=== PATIENT | female | born 1950 | race Caucasian/White ===

== ENCOUNTER → 2019-12-29 15:37 | Outpatient (CLI) | payer MEDICARE, OTHER, SELFPAY ==
[2019-12-30 11:09] LABS: Fecal Immunochemical Test Negative (Negative)
== END ==
PROVIDERS: PCP Student in an Organized Health Care Education/Training Program; Referring Provider Student in an Organized Health Care Education/Training Program; Visit Provider Student in an Organized Health Care Education/Training Program
DX: Z12.11 Encounter for screening for malignant neoplasm of colon (principal)
CPT/HCPCS: 82274

== ENCOUNTER → 2020-01-20 10:48 | Outpatient (CLI) | payer MEDICARE, OTHER, SELFPAY ==
[2020-01-20 11:57] LABS: Blood Urea Nitrogen 12 mg/dL (7-17); Calcium 10.2 mg/dL (8.4-10.2); Carbon Dioxide 28 mmol/L (22-32); Chloride 96 mmol/L (98-107); Estimated Glomerular Filt Rate > 60.0 mL/min (>60); Glucose 171 mg/dL (80-110); HEMOLYSIS < 15 (0-50); Potassium 4.2 mmol/L (3.4-5.1); Sodium 132 mmol/L (137-145)
== END ==
PROVIDERS: PCP Student in an Organized Health Care Education/Training Program; Referring Provider Student in an Organized Health Care Education/Training Program; Visit Provider Student in an Organized Health Care Education/Training Program
DX: I10 Essential (primary) hypertension (principal); R26.89 Other abnormalities of gait and mobility
CPT/HCPCS: 36415; 80048

== ENCOUNTER → 2020-02-04 10:36 | Outpatient (CLI) | payer MEDICARE, OTHER, SELFPAY ==
--- NOTE | 2020-02-04 | DI.RAD.S_ITS ---
PROCEDURE: XR CHEST 2V INDICATIONS: Presence of aortocoronary bypass graft TECHNIQUE: 2 views of the chest were acquired. COMPARISON: None. FINDINGS: Surgical changes and devices: Patient is status post median sternotomy and CABG. Lungs and pleura: Probable pulmonary scarring is present within the right mid lung and the left lower lung. However, no prior studies are available for comparison. No pleural effusion. No pneumothorax appreciated. Mediastinum: Mediastinal contours are normal. Heart size is normal. Bones and chest wall: No suspicious bony abnormalities. Soft tissues appear unremarkable. IMPRESSION: Questionable bilateral pulmonary scarring. No prior studies are available. If further characterization of pulmonary radiopacities is warranted, CT of the chest could be used. Dictated by: Verna Lombardo M.D. on 02/04/2020 at 12:04 Approved by: Verna Lombardo M.D. on 02/04/2020 at 12:06
== END ==
PROVIDERS: PCP Student in an Organized Health Care Education/Training Program; Referring Provider Student in an Organized Health Care Education/Training Program; Visit Provider Chiropractor
DX: Z09 Encounter for follow-up examination after completed treatment for conditions other than malignant neoplasm (principal); Z95.1 Presence of aortocoronary bypass graft
CPT/HCPCS: 71046

== ENCOUNTER → 2020-02-09 14:31 | Outpatient (CLI) | payer MEDICARE, OTHER, SELFPAY ==
[2020-02-09 15:23] LABS: Hemoglobin A1C% w Est Avg Glu 7.3 % (4.0-6.0)
== END ==
PROVIDERS: PCP Student in an Organized Health Care Education/Training Program; Referring Provider Student in an Organized Health Care Education/Training Program; Visit Provider Student in an Organized Health Care Education/Training Program
DX: E11.9 Type 2 diabetes mellitus without complications (principal)
CPT/HCPCS: 36415; 83036

== ENCOUNTER → 2020-02-10 11:33 | Outpatient (CLI) | payer MEDICARE, OTHER, SELFPAY ==
[2020-02-10 17:00] LABS: Creatinine Urine Random 68.3 mg/dL
[2020-02-10 17:13] LABS: Microalbumi Creatinin Ratio Ur 16.1 ug/mg CR (<30); Microalbumin Urine Random 1.1 mg/dL (0-1.6)
== END ==
PROVIDERS: PCP Student in an Organized Health Care Education/Training Program; Referring Provider Student in an Organized Health Care Education/Training Program; Visit Provider Student in an Organized Health Care Education/Training Program
DX: E11.9 Type 2 diabetes mellitus without complications (principal)
CPT/HCPCS: 82043; 82570

== ENCOUNTER → 2020-03-19 14:23 | Outpatient (CLI) | payer MEDICARE, OTHER, SELFPAY ==
[2020-03-19 15:38] LABS: COVID19 -Nasal RAPID Negative (Negative)
== END ==
PROVIDERS: PCP Student in an Organized Health Care Education/Training Program; Visit Provider Physician Assistant
DX: Z11.59 Encounter for screening for other viral diseases (principal)
CPT/HCPCS: 87635

== ENCOUNTER → 2020-05-26 14:54 | Outpatient (CLI) | payer MEDICARE, OTHER, SELFPAY ==
--- NOTE | 2020-05-26 | DI.MG.S_ITS ---
BILATERAL DIGITAL SCREENING MAMMOGRAM 3D/2D WITH CAD: 05/26/2020 CLINICAL: Routine screening. Comparison is made to exams dated: 08/27/2017 mammogram and 10/18/2009 mammogram - [facility]. The tissue of both breasts is predominantly fatty. Current study was also evaluated with a Computer Aided Detection (CAD) system. There is a 0.5 cm mass with a circumscribed margin in the left breast anterior depth central to the nipple seen on the craniocaudal view only. No other significant masses, calcifications, or other findings are seen in either breast. IMPRESSION: INCOMPLETE: NEEDS ADDITIONAL IMAGING EVALUATION The 0.5 cm mass in the left breast is indeterminate. Additional views with possible ultrasound are recommended. This exam was interpreted at Station ID: [id number]. NOTE: For mammograms, a report in lay terms will be sent to the patient. Approximately 15% of breast malignancies will not be visualized mammographically. In the management of a palpable breast mass, a negative mammogram must not discourage biopsy of a clinically suspicious lesion. Electronically Signed By: Sam Chou acr/:05/26/2020 16:47:04 letter sent: Additional Imaging Needed ACR BI-RADS Category 0: Incomplete [id number]
== END ==
PROVIDERS: PCP Student in an Organized Health Care Education/Training Program; Referring Provider Student in an Organized Health Care Education/Training Program; Visit Provider Student in an Organized Health Care Education/Training Program
DX: Z12.31 Encounter for screening mammogram for malignant neoplasm of breast (principal); Z13.820 Encounter for screening for osteoporosis; Z78.0 Asymptomatic menopausal state; Z90.722 Acquired absence of ovaries, bilateral; Z82.62 Family history of osteoporosis
CPT/HCPCS: 77063; 77067; 77080

== ENCOUNTER → 2020-06-14 11:46 | Outpatient (CLI) | payer MEDICARE, OTHER, SELFPAY ==
--- NOTE | 2020-06-14 12:03 | DI.RAD.S_ITS ---
PROCEDURE: XR KNEE RT 3V INDICATIONS: S/p right knee TKA 2 yrs ago. R/o hardware failure TECHNIQUE: 3 views of the knee were acquired. COMPARISON: None. FINDINGS: Bones: No fractures or dislocations. No suspicious bony lesions. Postsurgical changes compatible with prior right knee total arthroplasty. Orthopedic hardware is stable in position. No lucencies at the bone-hardware interface. Lateral medial compartment joint space is symmetric. Soft tissues: No joint effusion. No suspicious soft tissue calcifications. IMPRESSION: Expected postsurgical change for right knee arthroplasty. No radiographic evidence of hardware failure. Dictated by: Janeen Tello MD, PhD on 06/14/2020 at 17:16 Approved by: Janeen Tello MD, PhD on 06/14/2020 at 17:18
[2020-06-14 14:00] LABS: Hemoglobin A1C% w Est Avg Glu 6.7 % (4.0-6.0)
== END ==
PROVIDERS: PCP Student in an Organized Health Care Education/Training Program; Referring Provider Student in an Organized Health Care Education/Training Program; Visit Provider Student in an Organized Health Care Education/Training Program
DX: E11.9 Type 2 diabetes mellitus without complications (principal); M25.561 Pain in right knee; Z96.659 Presence of unspecified artificial knee joint
CPT/HCPCS: 36415; 73562; 83036

== ENCOUNTER 2020-06-23 14:00 | Outpatient (RCR) | payer MEDICARE, OTHER, SELFPAY | END 2020-06-23 15:00 | LOC: CAR 14:00 | PROVIDERS: PCP Student in an Organized Health Care Education/Training Program; Referring Provider Surgery; Visit Provider Surgery | DX: Z95.1 Presence of aortocoronary bypass graft (principal) | CPT/HCPCS: 93798 ==

== ENCOUNTER → 2020-07-06 09:44 | Outpatient (CLI) | payer MEDICARE, OTHER, SELFPAY ==
[2020-07-06] MEDS: COVID-19 VACC, Ad26(JANSSEN)/PF 0.5 ML IM (09:58)
== END ==
PROVIDERS: PCP Student in an Organized Health Care Education/Training Program; Visit Provider Internal Medicine
DX: Z23 Encounter for immunization (principal)
CPT/HCPCS: 0031A; 91303

== ENCOUNTER → 2020-09-12 11:12 | Outpatient (CLI) | payer MEDICARE, OTHER, SELFPAY ==
--- NOTE | 2020-09-12 11:14 | DI.RAD.S_ITS ---
PROCEDURE: XR HIP W PEL IF DONE RT 2V INDICATIONS: right hip and groin pain TECHNIQUE: AP pelvis with lateral view(s) of the right hip(s). COMPARISON: None. FINDINGS: Bones: No fractures or dislocations. Pelvic ring appears intact. No suspicious bony lesions. Moderate bilateral hip osteoarthritis with osseous hypertrophy and joint space narrowing. Soft tissues: The visualized bowel gas pattern is normal. No suspicious soft tissue calcifications. IMPRESSION: Moderate bilateral hip osteoarthritis. Dictated by: Janeen Tello MD, PhD on 09/12/2020 at 16:19 Approved by: Janeen Tello MD, PhD on 09/12/2020 at 16:20
== END ==
PROVIDERS: PCP Student in an Organized Health Care Education/Training Program; Referring Provider Family Medicine; Visit Provider Family Medicine
DX: M16.0 Bilateral primary osteoarthritis of hip
CPT/HCPCS: 73502

== ENCOUNTER → 2020-12-23 15:44 | Outpatient (CLI) | payer MEDICARE, OTHER, SELFPAY ==
[2020-12-23 17:02] LABS: Hemoglobin A1C% w Est Avg Glu 6.6 % (4.0-6.0)
== END ==
PROVIDERS: PCP Student in an Organized Health Care Education/Training Program; Referring Provider Student in an Organized Health Care Education/Training Program; Visit Provider Student in an Organized Health Care Education/Training Program
DX: E11.9 Type 2 diabetes mellitus without complications (principal)
CPT/HCPCS: 36415; 83036

== ENCOUNTER 2021-01-09 11:56 | Emergency (ER) | payer MEDICARE, OTHER, SELFPAY ==
[2021-01-09] VITALS (8 sets, daily range): BP systolic 137–154; BP diastolic 63–70; PULSE 58–76; RESP 14; TEMP 36.4; O2SAT 86–98; BMI 23.2
--- NOTE | 2021-01-09 12:37 | DI.CT.S_ITS ---
PROCEDURE: CT HEAD/BRAIN WO CON INDICATIONS: hit head 2 weeks ago,intermittent pain,hx subarachnoid TECHNIQUE: Noncontrast 4.5 mm thick angled axial sections acquired from the foramen magnum to the vertex, with coronal and sagittal reformats. For radiation dose reduction, the following was used: automated exposure control, adjustment of mA and/or kV according to patient size. COMPARISON: None. FINDINGS: Image quality: Excellent. CSF spaces: Basal cisterns are patent. No extra-axial fluid collections. The ventricles are symmetric in size and shape. Brain: No intracranial bleeds or masses. There is cerebral volume loss for age, with resultant ventricular and sulcal prominence. There are periventricular and deep white matter chronic small vessel ischemic changes. There is intracranial internal carotid artery atherosclerosis. Skull and face: Calvarium and visualized facial bones appear intact, without suspicious lesions. Sinuses: Visualized sinuses and mastoids are clear. IMPRESSION: 1. No acute intracranial process. 2. Moderate atrophy and chronic microvascular ischemic changes. Dictated by: Fabiana Leos M.D. on 01/09/2021 at 12:48 Approved by: Fabiana Leos M.D. on 01/09/2021 at 12:48
[2021-01-09 13:21] LABS: Lactate (Lactic Acid) 0.8 mmol/L (0.7-2.1); Triglycerides 146 mg/dL (35-150)
--- NOTE | 2021-01-09 13:23 | DI.RAD.S_ITS ---
PROCEDURE: XR CHEST 2V INDICATIONS: Fall, ?LOC TECHNIQUE: 2 views of the chest were acquired. COMPARISON: [facility], CT, CT HEAD/BRAIN WO CON, 01/09/2021, 12:34. [facility], CR, XR CHEST 2V, 02/04/2020, 10:31. FINDINGS: Surgical changes and devices: Post CABG changes are seen. Lungs and pleura: Lungs are clear. No pleural effusions or pneumothorax. Mediastinum: Mediastinal contours are normal. Heart size is normal. Bones and chest wall: No suspicious bony abnormalities. Age-appropriate bony degenerative changes are seen. Soft tissues appear unremarkable. IMPRESSION: Unremarkable chest plain films for age. Dictated by: Vinay Kirby M.D. on 01/09/2021 at 12:49 Approved by: Vinay Kirby M.D. on 01/09/2021 at 12:50
--- NOTE | 2021-01-09 13:27 | ED_ITS ---
HPI - Head Injury <Terrell Piña PA-C - Last Filed: 01/10/21 09:05> General Chief complaint: Head Injury Stated complaint: hit head 2 wks ago, hx subarachnoid bleed Time Seen by Provider: 01/09/21 12:04 Source: patient Mode of arrival: Ambulatory Limitations: no limitations History of Present Illness HPI Narrative: 70-year-old female with past medical history type 2 diabetes, coronary artery disease, hyperlipidemia, hypertension, GERD, reported prior history of sub adequate hemorrhage presents to the ED status post a fall 3 weeks prior to arrival. Patient states she misjudged a step, incurring a mechanical fall which caused her to strike her head. Unsure of loss of consciousness. She called out as she was falling, so people came quickly to her side but were unable to tell if she had LOC. patient did not seek medical attention at that time. Patient had an abrasion sustained to the right episcopalian from the fall which healed. Patient started experience some electric shock-like sensations that were going across her scalp 3 days ago. Patient states that it was worst yesterday, but better today. Patient took Tylenol with minimal relief. Patient endorses feeling a little days after the fall, but no vomiting. Denies fever, chills, chest pain, shortness of breath, cough, dizziness, lightheadedness, vomiting, abdominal pain, dysuria. Related Data Home Medications Medication Instructions Recorded Confirmed aspirin 81 mg chewable tablet 81 mg PO DAILY 02/09/20 12/29/20 docusate sodium 100 mg capsule 100 mg PO DAILY 02/09/20 12/29/20 sennosides 8.6 mg tablet (senna) 8.6 mg PO DAILY 02/09/20 12/29/20 famotidine 20 mg tablet 20 mg PO BID 03/23/20 12/29/20 amlodipine 5 mg tablet 5 mg PO BID tab 12/29/20 12/29/20 Previous Rx's Medication Instructions Recorded one touch ultra test strips #100 ea 03/23/20 metoprolol tartrate 50 mg tablet 50 mg PO BID #180 tab 06/20/20 duloxetine 30 mg capsule,delayed 30 mg PO DAILY #90 cap 07/25/20 release (Cymbalta) fenofibrate 160 mg tablet 160 mg PO DAILY #90 tab 07/25/20 metformin 1,000 mg tablet 1,000 mg PO BID #60 tab 12/19/20 Allergies Allergy/AdvReac Type Severity Reaction Status Date / Time CHERYL Inhibitors Allergy Mild hip Verified 12/29/20 15:29 weakness, panic attack latex Allergy Mild rash Verified 12/29/20 15:29 Sulfa (Sulfonamide Allergy Mild Swelling Verified 12/29/20 15:29 Antibiotics) codeine Allergy Verified 01/09/21 12:03 flu shots Allergy Mild itching Uncoded 12/29/20 15:29 all over Review of Systems <Terrell Piña PA-C - Last Filed: 01/10/21 09:05> Review of Systems Narrative: Electric shock like sensations across top of scalp, sometimes inside the right ear. Constitutional Constitutional: Denies chills, Denies fatigue, Denies fever(s), Denies frequent falls, Denies lethargy and Denies weakness Eyes Eyes: Denies change in vision, Denies eye discharge, Denies irritation and Den ies loss of vision ENT Ears, Nose, Mouth, and Throat: Denies change in voice, Denies dizziness, Denies neck pain, Reports disequilibrium, Denies sore throat and Denies throat swelling Cardiovascular Cardiovascular: Denies chest pain, Denies irregular heart rhythm, Denies lightheadedness, Denies palpitations, Denies dyspnea, Denies dyspnea on exertion and Denies orthopnea Respiratory Respiratory: Denies cough, Denies dyspnea, Denies dyspnea on exertion and Denies wheezing Gastrointestinal Gastrointestinal: Denies abdominal pain, Denies change in bowel habits, Denies diarrhea, Reports nausea and Denies vomiting Musculoskeletal Musculoskeletal: Denies neck pain and Denies numbness Integumentary/Breasts Skin/Breast: Denies pruritus, Denies erythema, Denies rash and Denies wounds Neurologic Neurologic: Denies behavioral changes, Denies confusion, Denies dizziness, Denies frequent falls, Denies loss of vision, Denies numbness, Reports disequilibrium and Denies weakness Psychiatric Psychiatric: Denies anxiety, Denies behavioral changes, Denies confusion, Denies depression, Denies homicidal ideation and Denies suicidal ideation Endocrine Endocrine: Denies fatigue, Denies flushing and Denies palpitations Hematologic/Lymphatic Hematologic/Lymphatic: Denies easy bruising Allergic/Immunologic Allergic/Immunologic: Denies urticaria, Denies throat swelling and Denies wheezing Patient History <Terrell Piña PA-C - Last Filed: 01/10/21 09:05> Medical History Chronic low back pain Osteoarthritis of right hip Surgical History S/P CABG x 2 S/P total knee arthroplasty Social History Smoking Status: Never smoker Smoking Status: Never smoker alcohol intake frequency: holidays/special occasions only Substance Use Type: does not use Exam <Terrell Piña PA-C - Last Filed: 01/10/21 09:05> Narrative Exam Narrative: Traces of an abrasion on right episcopalian above the eyebrow, healed well. Mild tenderness to palpation of right episcopalian. Initial Vital Signs Initial Vital Signs: Vital Signs Temperature 97.5 F L 01/09/21 12:00 Pulse Rate 72 01/09/21 12:00 Respiratory Rate 14 01/09/21 12:00 Blood Pressure 140/70 01/09/21 12:00 Pulse Oximetry 98 01/09/21 12:00 Const General: cooperative HENMT Head: normocephalic and atraumatic Ears: external ears normal and TM's normal bilaterally Nose: external nose normal and No nasal discharge Face and sinus: sinuses nontender, face symmetric, no sinus tenderness and No dry mucous membranes Mouth: oral mucosae normal and moist mucous membranes Teeth and gingiva: dentition normal Throat: tonsils normal and uvula midline Eyes General: appearance normal, both eyes and all related structures Eyelids: eyelids normal Conjunctivae: conjunctivae normal Sclera: sclerae normal Pupils: PERRL EOM: EOM intact bilaterally Neck Neck: normal visual inspection, trachea midline, No lymphadenopathy, No midline deformity and No JVD Lymphatic: No lymphedema Chest Chest: normal inspection of the chest Resp Effort & Inspection: normal respiratory effort, able to speak in complete sentences, no respiratory distress and no use of accessory muscles Auscultation: clear to auscultation bilaterally, no rales, no rhonchi and no wheezes Cardio Rate: regular rate Rhythm: regular rhythm Heart Sounds: no click, no gallops, no murmurs and no rubs Pulses: normal peripheral pulses GI Inspection: non-distended Palpation: soft, no hepatosplenomegaly, No guarding, No pulsatile mass and No tender Auscultation: normal bowel sounds Back/Spine/Pelvis Back: No CVA tenderness Cervical Spine: cervical ROM normal and No pain with cervical ROM Thoracic/Lumbar Spine: thoracic and lumbar spine normal to inspection Skin General: no rashes or lesions noted, No jaundice and No petechiae Neuro General: patient alert, patient oriented x3, gait normal and no focal motor deficits Speech: speech normal Other: Neurologically intact. PERRLA, CN 1-12 intact, gait normal. Strength and sensation intact. Negative [id number], pronator drift, rapid alternating movements. Extrem General: full ROM, no clubbing, cyanosis or edema, no pedal edema and no calf tenderness Psych Appearance: well kempt Mental Status: mental status grossly normal Attitude: cooperative Thought Content: normal and suicidality Judgment: judgment good <Feliciano Edge MD - Last Filed: 01/15/21 10:55> Initial Vital Signs Initial Vital Signs: Vital Signs Temperature 97.5 F L 01/09/21 12:00 Pulse Rate 72 01/09/21 12:00 Respiratory Rate 14 01/09/21 12:00 Blood Pressure 140/70 01/09/21 12:00 Pulse Oximetry 98 01/09/21 12:00 Course <Terrell Piña PA-C - Last Filed: 01/10/21 09:05> Course Course Narrative: patient stable through ED stay. CT head negative, chest x- ray, EKG with no acute findings, troponin within normal limits. Labs within normal limits. Will discharge patient home with Neurology follow-up and ED return precautions. Orders Ordered: ED Orders 01/09/21 12:37 CT head/brain wo con Stat 01/09/21 13:01 Lactate (Lactic Acid) Stat Triglycerides Stat 01/09/21 13:23 XR chest 2V Stat Troponin I Stat EKG-12 Lead Stat 01/09/21 13:25 Basic Metabolic Panel Stat Complete Blood Count AUTO DIFF Stat Vital Signs Vital signs: Vital Signs - 8 hr 01/09/21 12:00 01/09/21 12:01 01/09/21 12:42 Temperature 97.5 F L Pulse Rate 76 73 Respiratory Rate 14 Blood Pressure 140/70 140/70 Pulse Oximetry 96 98 86 L 01/09/21 12:43 01/09/21 13:00 01/09/21 13:01 Temperature Pulse Rate 60 63 58 L Respiratory Rate Blood Pressure 154/70 H 141/63 H Pulse Oximetry 98 97 97 <Feliciano Edge MD - Last Filed: 01/15/21 10:55> Orders Ordered: ED Orders 01/09/21 12:37 CT head/brain wo con Stat 01/09/21 13:01 Lactate (Lactic Acid) Stat Triglycerides Stat 01/09/21 13:23 XR chest 2V Stat Troponin I Stat EKG-12 Lead Stat 01/09/21 13:25 Basic Metabolic Panel Stat Complete Blood Count AUTO DIFF Stat Vital Signs Vital signs: Vital Signs - 8 hr 01/09/21 12:00 01/09/21 12:01 01/09/21 12:42 Temperature 97.5 F L Pulse Rate 76 73 Respiratory Rate 14 Blood Pressure 140/70 140/70 Pulse Oximetry 96 98 86 L 01/09/21 12:43 01/09/21 13:00 01/09/21 13:01 Temperature Pulse Rate 60 63 58 L Respiratory Rate Blood Pressure 154/70 H 141/63 H Pulse Oximetry 98 97 97 MDM - Head Injury <Terrell Piña PA-C - Last Filed: 01/10/21 09:05> Lab Data Lab results narrative: Labs within normal limits Result diagrams: 01/09/21 13:01 01/09/21 13:01 Labs: Lab Results 01/09/21 01/09/21 01/09/21 Range/Units 13:01 13:01 13:01 WBC (4.5-11.0) X10^3/uL RBC (4.0-5.2) X10^6/uL Hgb (12.0-16.0) g/dL Hct (36-46) % MCV (80-100) fL MCH (26-34) PG MCHC (30-36) % RDW (11.6-14.8) % Plt Count (150-400) X10^3/uL Neut % (Auto) (50-75) % Lymph % (Auto) (25-40) % [place] % (Auto) (3-14) % Eos % (Auto) (2-4) % Baso % (Auto) (0-2) % Neut # (Auto) (0000-6504) /uL Lymph # (Auto) (4096-7622) /uL [place] # (Auto) (0-900) /uL Eos # (Auto) (0-450) /uL Baso # (Auto) (0-100) /uL Sodium (137-145) mmol/L Potassium (3.4-5.1) mmol/L Chloride (98-107) mmol/L Carbon Dioxide (22-32) mmol/L BUN (7-17) mg/dL Creatinine (0.52-1.04) mg/dL Estimated GFR (>60) mL/min BUN/Creatinine Ratio (6-22) Glucose (80-110) mg/dL Lactate 0.8 (0.7-2.1) mmol/L Calcium (8.4-10.2) mg/dL Troponin I < 0.012 (0.01-0.034) ng/mL Triglycerides 146 (35-150) mg/dL 01/09/21 01/09/21 Range/Units 13:01 13:01 WBC 4.6 (4.5-11.0) X10^3/uL RBC 4.00 (4.0-5.2) X10^6/uL Hgb 12.9 (12.0-16.0) g/dL Hct 38.2 (36-46) % MCV 95.4 (80-100) fL MCH 32.2 (26-34) PG MCHC 33.8 (30-36) % RDW 13.1 (11.6-14.8) % Plt Count 310 (150-400) X10^3/uL Neut % (Auto) 61.2 (50-75) % Lymph % (Auto) 28.1 (25-40) % [place] % (Auto) 6.8 (3-14) % Eos % (Auto) 3.1 (2-4) % Baso % (Auto) 0.8 (0-2) % Neut # (Auto) 2800 (9221-7020) /uL Lymph # (Auto) 1300 (5337-8517) /uL [place] # (Auto) 300 (0-900) /uL Eos # (Auto) 100 (0-450) /uL Baso # (Auto) 0 (0-100) /uL Sodium 136 L (137-145) mmol/L Potassium 4.5 (3.4-5.1) mmol/L Chloride 105 (98-107) mmol/L Carbon Dioxide 26 (22-32) mmol/L BUN 13 (7-17) mg/dL Creatinine 0.89 (0.52-1.04) mg/dL Estimated GFR > 60.0 (>60) mL/min BUN/Creatinine Ratio 14.6 (6-22) Glucose 130 H (80-110) mg/dL Lactate (0.7-2.1) mmol/L Calcium 9.8 (8.4-10.2) mg/dL Troponin I (0.01-0.034) ng/mL Triglycerides (35-150) mg/dL Imaging Data CT scan - head: Radiologist's Impression: PROCEDURE:? CT HEAD/BRAIN WO CON ? INDICATIONS:? hit head 2 weeks ago,intermittent pain,hx subarachnoid ? TECHNIQUE:? Noncontrast 4.5 mm thick angled axial sections acquired from the foramen magnum to the vertex, with coronal and sagittal reformats.? For radiation dose reduction, the following was used:? automated exposure control, adjustment of mA and/or kV according to patient size.? ? COMPARISON:? None. ? FINDINGS:? Image quality:? Excellent.? ? CSF spaces:? Basal cisterns are patent.? No extra-axial fluid collections.? The ventricles are symmetric in size and shape.? ? Brain:? No intracranial bleeds or masses.? There is cerebral volume loss for a ge, with resultant ventricular and sulcal prominence.? There are periventricular and deep white matter chronic small vessel ischemic changes.? There is intracranial internal carotid artery atherosclerosis.? ? Skull and face:? Calvarium and visualized facial bones appear intact, without suspicious lesions.? ? Sinuses:? Visualized sinuses and mastoids are clear.? ? IMPRESSION:? ? 1. No acute intracranial process. ? 2. Moderate atrophy and chronic microvascular ischemic changes. ? ? ? Dictated by: Fabiana Leos M.D. on 01/09/2021 at 12:48 ? ? Approved by: Fabiana Leos M.D. on 01/09/2021 at 12:48 ? MDM Narrative Medical decision making narrative: 70-year-old female with past medical history type 2 diabetes, coronary artery disease, hyperlipidemia, hypertension, GERD, reported prior history of sub adequate hemorrhage presents to the ED status post a fall 3 weeks prior to arrival. Concern for intracranial hemorrhage versus syncope. Given unsure LOC and questionable mechanical fall, will do a cardiac workup. Will order EKG, chest x-ray, troponin, labs, CT head. Will reassess. <Feliciano Edge MD - Last Filed: 01/15/21 10:55> Lab Data Labs: Lab Results 01/09/21 01/09/21 01/09/21 Range/Units 13:01 13:01 13:01 WBC (4.5-11.0) X10^3/uL RBC (4.0-5.2) X10^6/uL Hgb (12.0-16.0) g/dL Hct (36-46) % MCV (80-100) fL MCH (26-34) PG MCHC (30-36) % RDW (11.6-14.8) % Plt Count (150-400) X10^3/uL Neut % (Auto) (50-75) % Lymph % (Auto) (25-40) % [place] % (Auto) (3-14) % Eos % (Auto) (2-4) % Baso % (Auto) (0-2) % Neut # (Auto) (4084-4960) /uL Lymph # (Auto) (7435-5655) /uL [place] # (Auto) (0-900) /uL Eos # (Auto) (0-450) /uL Baso # (Auto) (0-100) /uL Sodium (137-145) mmol/L Potassium (3.4-5.1) mmol/L Chloride (98-107) mmol/L Carbon Dioxide (22-32) mmol/L BUN (7-17) mg/dL Creatinine (0.52-1.04) mg/dL Estimated GFR (>60) mL/min BUN/Creatinine Ratio (6-22) Glucose (80-110) mg/dL Lactate 0.8 (0.7-2.1) mmol/L Calcium (8.4-10.2) mg/dL Troponin I < 0.012 (0.01-0.034) ng/mL Triglycerides 146 (35-150) mg/dL 01/09/21 01/09/21 Range/Units 13:01 13:01 WBC 4.6 (4.5-11.0) X10^3/uL RBC 4.00 (4.0-5.2) X10^6/uL Hgb 12.9 (12.0-16.0) g/dL Hct 38.2 (36-46) % MCV 95.4 (80-100) fL MCH 32.2 (26-34) PG MCHC 33.8 (30-36) % RDW 13.1 (11.6-14.8) % Plt Count 310 (150-400) X10^3/uL Neut % (Auto) 61.2 (50-75) % Lymph % (Auto) 28.1 (25-40) % [place] % (Auto) 6.8 (3-14) % Eos % (Auto) 3.1 (2-4) % Baso % (Auto) 0.8 (0-2) % Neut # (Auto) 2800 (4167-2927) /uL Lymph # (Auto) 1300 (3513-2486) /uL [place] # (Auto) 300 (0-900) /uL Eos # (Auto) 100 (0-450) /uL Baso # (Auto) 0 (0-100) /uL Sodium 136 L (137-145) mmol/L Potassium 4.5 (3.4-5.1) mmol/L Chloride 105 (98-107) mmol/L Carbon Dioxide 26 (22-32) mmol/L BUN 13 (7-17) mg/dL Creatinine 0.89 (0.52-1.04) mg/dL Estimated GFR > 60.0 (>60) mL/min BUN/Creatinine Ratio 14.6 (6-22) Glucose 130 H (80-110) mg/dL Lactate (0.7-2.1) mmol/L Calcium 9.8 (8.4-10.2) mg/dL Troponin I (0.01-0.034) ng/mL Triglycerides (35-150) mg/dL Discharge Plan Departure Patient Disposition: Home Clinical Impression: Closed head injury Qualifiers: Encounter type: initial encounter Qualified Code(s): S09.90XA - Unspecified injury of head, initial encounter Instructions: DI for Closed Head Injury Activity Restrictions/Additional Instructions: You were evaluated in the ED today for a head injury that she sustained [address] head was normal angio cardiac workup was normal as well. If you continue to experience headaches, please follow-up with the neurologist. Return to the ED if you experience severe headaches, nausea, vomiting, dizziness lightheadedness, trouble walking, fainting. Prescriptions: No Action metoprolol tartrate 50 mg tablet 50 mg PO BID Qty: 180 RF: 3 fenofibrate 160 mg tablet 160 mg PO DAILY Qty: 90 RF: 3 duloxetine [Cymbalta] 30 mg capsule,delayed release(DR/EC) 30 mg PO DAILY Qty: 90 RF: 3 metformin 1,000 mg tablet 1,000 mg PO BID Qty: 60 RF: 0 Hold Instructions: Post CABG amlodipine 5 mg tablet 5 mg PO BID RF: 0 famotidine 20 mg tablet 20 mg PO BID RF: 0 (DME) one touch ultra test strips See Rx Instructions .Route .MEDSUPPLY Qty: 100 RF: 3 aspirin 81 mg tablet,chewable 81 mg PO DAILY RF: 0 sennosides [senna] 8.6 mg tablet 8.6 mg PO DAILY RF: 0 docusate sodium 100 mg capsule 100 mg PO DAILY RF: 0 Referrals: Jefferson Mon MD [Primary Care Provider] - <Feliciano Edge MD - Last Filed: 01/15/21 10:55> [facility] I was immediately available in the de partment for consultation. This documentation has been reviewed and I agree with assessment and plan. Supervised by Feliciano Edge MD
[2021-01-09 13:35] LABS: Add Manual Diff / Slide Review NO; Basophils Absolute Auto 0 /uL (0-100); Basophils Percent Auto 0.8 % (0-2); Eosinophils Absolute Auto 100 /uL (0-450); Eosinophils Percent Auto 3.1 % (2-4); Hematocrit 38.2 % (36-46); Hemoglobin 12.9 g/dL (12.0-16.0); Lymphocytes Absolute Auto 1300 /uL (1100-4500); Lymphocytes Percent Auto 28.1 % (25-40); Mean Corpuscular HGB Conc 33.8 % (30-36); Mean Corpuscular Hemoglobin 32.2 PG (26-34); Mean Corpuscular Volume 95.4 fL (80-100); Monocytes Absolute Auto 300 /uL (0-900); Monocytes Percent Auto 6.8 % (3-14); Neutrophils Absolute Auto 2800 /uL (1500-7000); Neutrophils Percent Auto 61.2 % (50-75); Platelet Count 310 X10^3/uL (150-400); Red Cell Distribution Width 13.1 % (11.6-14.8); White Blood Cell Count 4.6 X10^3/uL (4.5-11.0)
[2021-01-09 13:46] LABS: BUN Creatinine Ratio 14.6 (6-22); Blood Urea Nitrogen 13 mg/dL (7-17); Calcium 9.8 mg/dL (8.4-10.2); Carbon Dioxide 26 mmol/L (22-32); Chloride 105 mmol/L (98-107); Estimated Glomerular Filt Rate > 60.0 mL/min (>60); Glucose 130 mg/dL (80-110); HEMOLYSIS < 15 (0-50); Potassium 4.5 mmol/L (3.4-5.1); Sodium 136 mmol/L (137-145)
[2021-01-09 13:57] LABS: Troponin I < 0.012 ng/mL (0.01-0.034)
== END 2021-01-09 14:37 | disposition home or self-care (01) ==
PROVIDERS: Emergency Provider Student in an Organized Health Care Education/Training Program; PCP Student in an Organized Health Care Education/Training Program
DX: S09.90XA Unspecified injury of head, initial encounter (principal); W19.XXXA Unspecified fall, initial encounter; Z86.79 Personal history of other diseases of the circulatory system; R07.9 Chest pain, unspecified
CPT/HCPCS: 36415; 70450; 71046; 80048; 83605; 84478; 84484; 85025; 93005; 93010; 99284

== ENCOUNTER → 2021-06-05 11:27 | Outpatient (CLI) | payer MEDICARE, OTHER, SELFPAY ==
[2021-06-05 12:55] LABS: Hemoglobin A1C% w Est Avg Glu 7.2 % (4.0-6.0)
[2021-06-05 14:01] LABS: Alanine Aminotransferase 22 IU/L (<35); Aspartate Aminotransferase 24 IU/L (14-36); Cholesterol 272 mg/dL (140-199); Creatine Kinase 30 U/L (30-135); HDL Cholesterol 55 mg/dL (40-60); LDL Cholesterol Calculated 175 mg/dL (<100); Triglycerides 212 mg/dL (35-150)
[2021-06-05 14:18] LABS: LDL Cholesterol Direct 187 mg/dL (<100)
[2021-06-05 15:12] LABS: Creatinine Urine Random 182.1 mg/dL
[2021-06-05 15:16] LABS: Microalbumi Creatinin Ratio Ur 35.6 ug/mg CR (<30); Microalbumin Urine Random 6.5 mg/dL (0-1.6)
== END ==
PROVIDERS: PCP Student in an Organized Health Care Education/Training Program; Referring Provider Internal Medicine Cardiovascular Disease; Visit Provider Internal Medicine Cardiovascular Disease
DX: E78.5 Hyperlipidemia, unspecified (principal); I10 Essential (primary) hypertension; I25.10 Atherosclerotic heart disease of native coronary artery without angina pectoris; E11.9 Type 2 diabetes mellitus without complications; E78.2 Mixed hyperlipidemia
CPT/HCPCS: 36415; 80061; 82043; 82550; 82570; 83036; 83721; 84450; 84460

== ENCOUNTER → 2021-09-14 13:04 | Outpatient (CLI) | payer MEDICARE, OTHER, SELFPAY ==
[2021-09-14 13:56] LABS: Hematocrit 40.8 % (36-46); Hemoglobin 14.1 g/dL (12.0-16.0); Mean Corpuscular HGB Conc 34.6 % (30-36); Mean Corpuscular Hemoglobin 31.5 PG (26-34); Platelet Count 311 X10^3/uL (150-400); Red Blood Cell Count 4.48 X10^6/uL (4.0-5.2); Red Cell Distribution Width 12.5 % (11.6-14.8); White Blood Cell Count 7.5 X10^3/uL (4.5-11.0)
[2021-09-14 14:08] LABS: Hemoglobin A1C% w Est Avg Glu 7.9 % (4.0-6.0)
[2021-09-14 14:21] LABS: Alanine Aminotransferase 20 IU/L (<35); Albumin 4.7 g/dL (3.5-5.0); Albumin Globulin Ratio 1.5 (1.0-2.8); Alkaline Phosphatase 69 U/L (38-126); Aspartate Aminotransferase 26 IU/L (14-36); BUN Creatinine Ratio 21.6 (6-22); Bilirubin Total 0.4 mg/dL (0.2-1.3); Blood Urea Nitrogen 19 mg/dL (7-17); Calcium 9.9 mg/dL (8.4-10.2); Carbon Dioxide 26 mmol/L (22-32); Chloride 102 mmol/L (98-107); Estimated Glomerular Filt Rate > 60 mL/min (>60); Globulin 3.2 g/dL (1.7-4.1); Glucose 285 mg/dL (80-110); HEMOLYSIS < 15 (0-50); Potassium 4.7 mmol/L (3.4-5.1); Sodium 136 mmol/L (137-145); Total Protein 7.9 g/dL (6.3-8.2)
[2021-09-22 15:07] LABS: Appearance Urine UA CLOUDY; Bilirubin Urine UA 1+ (NEGATIVE); Color Urine UA YELLOW; Glucose Urine UA 2+ g/dL (Negative); Ketones Urine UA TRACE (NEGATIVE); Leukocyte Esterase Urine UA 2+ (NEGATIVE); Nitrite Urine UA NEGATIVE (Negative); Occult Blood Urine UA TRACE-LYSED (Negative); Protein Urine UA 2+ (Negative); Specific Gravity Urine UA 1.025 (1.000-1.035); Urobilinogen Urine UA 0.2 E.U./dL (0.2)
[2021-09-22 15:15] LABS: Ictotest Urine Negative (Negative)
[2021-09-22 15:25] LABS: Amorphous Sediment Urine 1+; Calcium Oxalate Crystals Urine Moderate; RBC Urine 0-1/HPF (0-5/HPF); Squamous Epithelial Cell Urine 1-5 /HPF (0-5/HPF); WBC Urine 5-10/HPF (0-5/HPF)
[2021-09-22 15:26] LABS: Bacteria Urine Moderate (10-30); Culture Indicated Urine Specimen Cultured; Mucus Urine 1+ (Negative)
[2021-09-22 18:37] LABS: Creatinine Urine Random 229.1 mg/dL
[2021-09-22 18:38] LABS: Microalbumi Creatinin Ratio Ur 61.5 ug/mg CR (<30); Microalbumin Urine Random 14.1 mg/dL (0-1.6)
== END ==
PROVIDERS: PCP Student in an Organized Health Care Education/Training Program; Referring Provider Student in an Organized Health Care Education/Training Program; Visit Provider Student in an Organized Health Care Education/Training Program
DX: E11.9 Type 2 diabetes mellitus without complications (principal); Z01.810 Encounter for preprocedural cardiovascular examination; I10 Essential (primary) hypertension
CPT/HCPCS: 36415; 80053; 81001; 82043; 82570; 83036; 85027; 87086

== ENCOUNTER → 2021-12-18 13:26 | Outpatient (CLI) | payer MEDICARE, OTHER, SELFPAY ==
[2021-12-19 07:28] LABS: Fructosamine 248 umol/L (0-285)
== END ==
PROVIDERS: PCP Student in an Organized Health Care Education/Training Program; Referring Provider Student in an Organized Health Care Education/Training Program; Visit Provider Student in an Organized Health Care Education/Training Program
DX: E11.9 Type 2 diabetes mellitus without complications (principal)
CPT/HCPCS: 36415; 82985

== ENCOUNTER → 2022-04-18 12:59 | Outpatient (CLI) | payer MEDICARE, OTHER, SELFPAY ==
[2022-04-18 14:03] LABS: Hemoglobin A1C% w Est Avg Glu 7.8 % (4.0-6.0)
== END ==
PROVIDERS: PCP Student in an Organized Health Care Education/Training Program; Referring Provider Student in an Organized Health Care Education/Training Program; Visit Provider Student in an Organized Health Care Education/Training Program
DX: E11.9 Type 2 diabetes mellitus without complications (principal)
CPT/HCPCS: 36415; 83036

== ENCOUNTER → 2022-05-04 16:48 | Outpatient (CLI) | payer MEDICARE, OTHER, SELFPAY ==
[2022-05-04 23:50] LABS: Influenza A - CEPHEID Flu A NEGATIVE (NEGATIVE); Influenza B - CEPHEID Flu B NEGATIVE (NEGATIVE); Respiratory Syncytial Virus Negative (Negative)
[2022-05-04 23:58] LABS: COVID-19 CEPHEID 4-PLEX PCR Negative (Negative)
== END ==
PROVIDERS: PCP Student in an Organized Health Care Education/Training Program; Visit Provider Student in an Organized Health Care Education/Training Program
DX: N39.0 Urinary tract infection, site not specified (principal); R68.89 Other general symptoms and signs
CPT/HCPCS: 0241U; 87077; 87086

== ENCOUNTER → 2022-10-29 11:05 | Outpatient (CLI) | payer MEDICARE, OTHER, SELFPAY ==
[2022-10-29 12:52] LABS: Add Manual Diff / Slide Review NO; Basophils Absolute Auto 0 /uL (0-100); Basophils Percent Auto 0.7 % (0-2); Eosinophils Absolute Auto 200 /uL (0-450); Eosinophils Percent Auto 2.9 % (2-4); Hemoglobin 13.3 g/dL (12.0-16.0); Lymphocytes Absolute Auto 1400 /uL (1100-4500); Lymphocytes Percent Auto 22.4 % (25-40); Mean Corpuscular HGB Conc 34.1 % (30-36); Mean Corpuscular Hemoglobin 31.6 PG (26-34); Mean Corpuscular Volume 92.7 fL (80-100); Monocytes Absolute Auto 400 /uL (0-900); Monocytes Percent Auto 7.3 % (3-14); Neutrophils Absolute Auto 4100 /uL (1500-7000); Neutrophils Percent Auto 66.7 % (50-75); Platelet Count 262 X10^3/uL (150-400); Red Blood Cell Count 4.21 X10^6/uL (4.0-5.2); Red Cell Distribution Width 12.8 % (11.6-14.8); White Blood Cell Count 6.1 X10^3/uL (4.5-11.0)
[2022-10-29 13:17] LABS: Alanine Aminotransferase 16 IU/L (<35); Albumin 4.1 g/dL (3.5-5.0); Albumin Globulin Ratio 1.4 (1.0-2.8); Alkaline Phosphatase 75 U/L (38-126); Aspartate Aminotransferase 21 IU/L (14-36); BUN Creatinine Ratio 13.2 (6-22); Bilirubin Total 0.6 mg/dL (0.2-1.3); Blood Urea Nitrogen 9 mg/dL (7-17); Carbon Dioxide 27 mmol/L (22-32); Chloride 99 mmol/L (98-107); Cholesterol 246 mg/dL (140-199); Estimated Glomerular Filt Rate > 60 mL/min (>60); Globulin 2.9 g/dL (1.7-4.1); Glucose 166 mg/dL (80-110); HDL Cholesterol 46 mg/dL (40-60); HEMOLYSIS < 15 (0-50); LDL Cholesterol Calculated 168 mg/dL (<100); Potassium 4.4 mmol/L (3.4-5.1); Sodium 135 mmol/L (137-145); Triglycerides 158 mg/dL (35-150)
[2022-10-29 14:05] LABS: Vitamin B12 < 159 pg/mL (239-931)
[2022-10-29 15:44] LABS: Microalbumin Urine Random 5.4 mg/dL (0-1.6)
[2022-10-29 15:47] LABS: Creatinine Urine Random 160.2 mg/dL; Microalbumi Creatinin Ratio Ur 33.7 ug/mg CR (<30)
[2022-10-30 06:23] LABS: x Labcorp Estim. Avg Glu (eAG) 166 mg/dL (.); x Labcorp Hemoglobin A1c 7.4 % (4.8-5.6)
== END ==
PROVIDERS: PCP Student in an Organized Health Care Education/Training Program; Referring Provider Pediatrics; Visit Provider Pediatrics
DX: E87.1 Hypo-osmolality and hyponatremia (principal); E11.9 Type 2 diabetes mellitus without complications; I25.10 Atherosclerotic heart disease of native coronary artery without angina pectoris; E78.2 Mixed hyperlipidemia; I10 Essential (primary) hypertension
CPT/HCPCS: 36415; 80053; 80061; 82043; 82570; 82607; 83036; 85025

== ENCOUNTER → 2022-11-16 14:05 | Outpatient (CLI) | payer MEDICARE, OTHER, SELFPAY ==
[2022-11-16 17:05] LABS: Appearance Urine UA SL CLOUDY; Bilirubin Urine UA 1+ (NEGATIVE); Color Urine UA YELLOW; Glucose Urine UA 1+ g/dL (Negative); Ketones Urine UA NEGATIVE (NEGATIVE); Leukocyte Esterase Urine UA 1+ (NEGATIVE); Nitrite Urine UA NEGATIVE (Negative); Occult Blood Urine UA 3+ (Negative); Protein Urine UA 2+ (Negative); Specific Gravity Urine UA >=1.030 (1.000-1.035)
[2022-11-16 17:54] LABS: pH Urine UA 5.5 (4.5-8.0)
[2022-11-16 18:10] LABS: Bacteria Urine Moderate (10-30); Culture Indicated Urine Specimen Cultured; Ictotest Urine Negative (Negative); RBC Urine >100/HPF (0-5/HPF); Squamous Epithelial Cell Urine 0-1 /HPF (0-5/HPF); WBC Urine 30-100/HPF (0-5/HPF)
== END ==
PROVIDERS: PCP Student in an Organized Health Care Education/Training Program; Referring Provider Specialist; Visit Provider Specialist
DX: R35.0 Frequency of micturition (principal); R39.15 Urgency of urination
CPT/HCPCS: 81001; 87086

== ENCOUNTER → 2022-11-19 16:03 | Outpatient (CLI) | payer MEDICARE, OTHER, SELFPAY | PROVIDERS: PCP Pediatrics; Visit Provider Specialist | DX: R30.0 Dysuria (principal) | CPT/HCPCS: 87086 ==

== ENCOUNTER → 2022-11-29 15:54 | Outpatient (CLI) | payer MEDICARE, OTHER, SELFPAY ==
--- NOTE | 2022-11-29 15:57 | DI.RAD.S_ITS ---
PROCEDURE: XR KNEE RT 3V INDICATIONS: knee pain, osteoarthritis knee TECHNIQUE: 3 views of the knee were acquired. COMPARISON: [facility], , XR KNEE RT 3V, 06/14/2020, 13:05. FINDINGS: Bones: Stable appearance and alignment of right TKA. No periprosthetic fractures or evidence of loosening/infection. Soft tissues: Small joint effusion. IMPRESSION: Stable appearance of right TKA. Dictated by: Abhijit ROLON Interpreted: Ismael Osborne MD on 11/29/2022 at 20:45 Transcribed by: GEOFFREY on 11/30/2022 at 8:38 Approved by: Ismael Osborne M.D. on 12/10/2022 at 17:44
--- NOTE | 2022-11-29 15:57 | DI.RAD.S_ITS ---
PROCEDURE: XR HIP W PEL IF DONE RT 2V INDICATIONS: knee pain and hip pain TECHNIQUE: AP pelvis and lateral view of the right hip acquired. COMPARISON: Located [facility], CR, XR HIP W PEL IF DONE RT 2V, 09/12/2020, 11:23. FINDINGS: Bones: Patient is status post right hip arthroplasty, with hardware components in expected positions. The hip joint appears congruent. The visualized bony structures appear intact. Severe left hip joint space narrowing with periarticular osteophyte formation. Degenerative disc and facet disease involves the inferior lumbar spine. Soft tissues: Overlying postoperative changes are noted. No suspicious soft tissue densities. IMPRESSION: 1. Right hip arthroplasty with surgical prosthetic components in expected positions. 2. Severe left hip joint degeneration. Dictated by: Abhijit ROLON Interpreted: Ismael Osborne MD on 11/29/2022 at 20:43 Transcribed by: GEOFFREY on 11/29/2022 at 20:45 Approved by: Ismael Osborne M.D. on 12/10/2022 at 17:44
--- NOTE | 2022-11-29 15:57 | DI.RAD.S_ITS ---
PROCEDURE: XR KNEE LT 3V INDICATIONS: knee pain TECHNIQUE: 3 views of the knee were acquired. COMPARISON: [facility], CR, XR KNEE RT 3V, 06/14/2020, 13:05. [facility], CR, XR KNEE RT 3V, 11/29/2022, 16:34. FINDINGS: Bones: No fractures or dislocations. No suspicious bony lesions. Mild tricompartmental knee joint space narrowing with minimal periarticular osteophyte formation. Soft tissues: No joint effusion. No suspicious soft tissue calcifications. Posterior soft tissue surgical clips. IMPRESSION: Mild tricompartmental knee joint degeneration. Dictated by: Abhijit ROLON Interpreted: Ismael Osborne MD on 11/29/2022 at 20:45 Transcribed by: GEOFFREY on 11/29/2022 at 20:46 Approved by: Ismael Osborne M.D. on 12/10/2022 at 17:44
== END ==
PROVIDERS: PCP Pediatrics; Referring Provider Pediatrics; Visit Provider Pediatrics
DX: M17.12 Unilateral primary osteoarthritis, left knee (principal); M25.461 Effusion, right knee; M16.12 Unilateral primary osteoarthritis, left hip; M25.559 Pain in unspecified hip; M25.561 Pain in right knee; M25.562 Pain in left knee; Z96.651 Presence of right artificial knee joint; Z96.641 Presence of right artificial hip joint
CPT/HCPCS: 73502; 73562

== ENCOUNTER → 2023-05-02 13:48 | Outpatient (CLI) | payer MEDICARE, OTHER, SELFPAY | PROVIDERS: PCP Family Medicine; Visit Provider Family Medicine | DX: N39.0 Urinary tract infection, site not specified (principal) | CPT/HCPCS: 87086 ==

== ENCOUNTER → 2023-05-03 08:41 | Outpatient (CLI) | payer MEDICARE, OTHER, SELFPAY ==
[2023-05-03 10:50] LABS: Alanine Aminotransferase 18 IU/L (<35); Cholesterol 236 mg/dL (140-199); Creatine Kinase 45 U/L (30-135); HDL Cholesterol 43 mg/dL (40-60); LDL Cholesterol Calculated 166 mg/dL (<100); Triglycerides 135 mg/dL (35-150)
[2023-05-03 11:00] LABS: LDL Cholesterol Direct 156 mg/dL (<100)
[2023-05-03 15:28] LABS: Aspartate Aminotransferase 23 IU/L (14-36)
== END ==
PROVIDERS: PCP Family Medicine; Referring Provider Internal Medicine Cardiovascular Disease; Visit Provider Internal Medicine Cardiovascular Disease
DX: I25.10 Atherosclerotic heart disease of native coronary artery without angina pectoris (principal); E78.5 Hyperlipidemia, unspecified; I10 Essential (primary) hypertension; R60.0 Localized edema; E11.9 Type 2 diabetes mellitus without complications
CPT/HCPCS: 36415; 80061; 82550; 83721; 84450; 84460

== ENCOUNTER → 2023-05-16 14:29 | Outpatient (CLI) | payer MEDICARE, OTHER, SELFPAY ==
[2023-05-16 16:50] LABS: Appearance Urine UA CLEAR; Bilirubin Urine UA NEGATIVE (NEGATIVE); Color Urine UA YELLOW; Glucose Urine UA 3+ g/dL (Negative); Ketones Urine UA TRACE (NEGATIVE); Leukocyte Esterase Urine UA NEGATIVE (NEGATIVE); Nitrite Urine UA NEGATIVE (Negative); Occult Blood Urine UA NEGATIVE (Negative); Protein Urine UA NEGATIVE (Negative); Specific Gravity Urine UA 1.015 (1.000-1.035); Urobilinogen Urine UA 0.2 E.U./dL (0.2)
== END ==
LOC: LAB 14:30
PROVIDERS: PCP Family Medicine; Referring Provider Family Medicine; Visit Provider Family Medicine
DX: N39.0 Urinary tract infection, site not specified (principal)
CPT/HCPCS: 81003

== ENCOUNTER → 2023-08-15 11:59 | Outpatient (CLI) | payer MEDICARE, OTHER, SELFPAY ==
--- NOTE | 2023-08-15 12:00 | DI.CT.S_ITS ---
PROCEDURE: CT HEAD/BRAIN WO CON INDICATIONS: head injury TECHNIQUE: Noncontrast 4.5 mm thick angled axial sections acquired from the foramen magnum to the vertex, with coronal and sagittal reformats. For radiation dose reduction, the following was used: automated exposure control, adjustment of mA and/or kV according to patient size. COMPARISON: [facility], CT, CT HEAD/BRAIN WO CON, 01/09/2021, 12:34. FINDINGS: Image quality: Diagnostic. CSF spaces: Basal cisterns are patent. No extra-axial fluid collections. The ventricles are symmetric in size and shape. Brain: No intracranial bleeds or masses. There is cerebral volume loss for age, with resultant ventricular and sulcal prominence. There are periventricular and deep white matter chronic small vessel ischemic changes. There is intracranial internal carotid artery atherosclerosis. Skull and face: Calvarium and visualized facial bones appear intact, without suspicious lesions. Sinuses: Visualized sinuses and mastoids are clear. IMPRESSION: No acute intracranial pathology. Dictated by: Karthik Tellez M.D. on 08/15/2023 at 12:38 Approved by: Karthik Tellez M.D. on 08/15/2023 at 12:39
== END ==
PROVIDERS: PCP Family Medicine; Referring Provider Family Medicine; Visit Provider Family Medicine
DX: S09.90XA Unspecified injury of head, initial encounter (principal); I65.29 Occlusion and stenosis of unspecified carotid artery; W18.30XA Fall on same level, unspecified, initial encounter; Z86.79 Personal history of other diseases of the circulatory system
CPT/HCPCS: 70450

== ENCOUNTER 2023-10-25 11:25 | Emergency (ER) | payer MEDICARE, OTHER, SELFPAY ==
[2023-10-25] VITALS (8 sets, daily range): BP systolic 143–185; BP diastolic 74–79; PULSE 74–93; RESP 20; TEMP 37.2; O2SAT 95–98; BMI 23.6
--- NOTE | 2023-10-25 11:50 | DI.RAD.S_ITS ---
PROCEDURE: XR CHEST 1V INDICATIONS: cough for 5 days TECHNIQUE: One view of the chest was acquired. COMPARISON: [facility], CR, XR CHEST 2V, 01/09/2021, 13:22. FINDINGS: Surgical changes and devices: Remote CABG. Lungs and pleura: Development of a density in the right lung base which may potentially represent pneumonia or perhaps atelectasis. No pleural effusions or pneumothorax. Mediastinum: Mediastinal contours appear normal. Stable heart size, top limits of normal.. Bones and chest wall: No suspicious bony lesions. Overlying soft tissues appear unremarkable. IMPRESSION: Acute right basilar process possibly representing pneumonia versus atelectasis. Comment: PA and lateral chest films may be helpful. Dictated by: Karthik Tellez M.D. on 10/25/2023 at 12:33 Approved by: Karthik Tellez M.D. on 10/25/2023 at 12:34
--- NOTE | 2023-10-25 11:58 | ED.GENADULT ---
HPI - General Adult General Chief complaint: Weakness Stated complaint: cough t-5 Time Seen by Provider: 10/25/23 11:49 Source: patient Mode of arrival: Ambulatory History of Present Illness HPI narrative: Patient is a 73-year-old female who is here for evaluation of 5 days of a nonproductive cough, urinary incontinence, fevers, generally not feeling very well. No skin rashes. No sore throat. No chest pain. Shortness of breath with the cough but otherwise no chest discomfort. Not tried anything for symptoms prior to arrival. Related Data Home Medications Medication Instructions Recorded Confirmed aspirin 81 mg chewable tablet 81 mg PO DAILY 02/09/20 08/14/23 famotidine 20 mg tablet 20 mg PO BID 03/23/20 08/14/23 metoprolol succinate 25 mg 25 mg PO BID 03/27/22 08/14/23 tablet,extended release 24 hr isosorbide mononitrate 30 mg 30 mg PO DAILY 11/02/22 08/14/23 tablet,extended release 24 hr nitroglycerin 0.4 mg sublingual 0.4 mg sublingual Q5M PRN 11/02/22 08/14/23 tablet Previous Rx's Medication Instructions Recorded one touch ultra test strips #100 ea 11/03/21 metformin 1,000 mg tablet 1,000 mg PO BID #180 tabs 04/08/23 estradiol 0.01% (0.1 mg/gram) 0.5 g vaginal 2XW #42.5 grams 06/11/23 vaginal cream (Estrace) clobetasol 0.05 % topical ointment 1 applic topical BEDTIME #45 grams 06/14/23 duloxetine 30 mg capsule,delayed 30 mg PO DAILY #30 caps 10/15/23 release (Cymbalta) azithromycin 250 mg tablet See Rx Instructions PO .COMPLEX #6 10/25/23 tabs Allergies Allergy/AdvReac Type Severity Reaction Status Date / Time CHERYL Inhibitors Allergy Mild hip Verified 08/14/23 13:28 weakness, panic attack latex Allergy Mild rash Verified 08/14/23 13:28 Sulfa (Sulfonamide Allergy Mild Swelling Verified 08/14/23 13:28 Antibiotics) codeine Allergy Verified 08/14/23 13:28 flu shots Allergy Mild itching Uncoded 08/14/23 13:28 all over Review of Systems Review of Systems Narrative: See HPI Patient History Medical History Lichen sclerosus Chronic low back pain Surgical History S/P CABG x 2 S/P total knee arthroplasty Social History Smoking Status: Never smoker Smoking Status: Never smoker alcohol intake frequency: holidays/special occasions only Substance Use Type: does not use Exam Initial Vital Signs Initial Vital Signs: Vital Signs Temperature 99 F 10/25/23 11:36 Pulse Rate 93 H 10/25/23 11:36 Respiratory Rate 20 10/25/23 11:36 Blood Pressure 171/78 H 10/25/23 11:36 Pulse Oximetry 98 10/25/23 11:36 Oxygen Delivery Method Room Air 10/25/23 11:36 Const General: cooperative, comfortable and No ill appearing HENMT Head: normal to inspection and normocephalic Resp Effort & Inspection: normal respiratory effort Auscultation: clear to auscultation bilaterally Cardio Rate: regular rate Rhythm: regular rhythm GI Inspection: normal to inspection and non-distended Neuro General: patient alert, patient awake and moves all extremities Extrem General: capillary refill normal Course Orders Ordered: ED Orders 10/25/23 11:44 Respiratory Panel (Film Array) Stat 10/25/23 11:50 XR chest 1V Stat 10/25/23 12:00 Basic Metabolic Panel Stat Complete Blood Count AUTO DIFF Stat Discontinued Medications Sodium Chloride (Normal Saline 0.9%) 1,000 mls @ 1,000 mls/hr IV BOLUS ONE Stop: 10/25/23 12:56 Last Infusion: 10/25/23 13:40 Dose: Infused Documented By: Admin: 10/25/23 12:42 Dose: 1,000 mls/hr Documented By: JUAN M Vital Signs Vital signs: Vital Signs - 8 hr 10/25/23 11:36 10/25/23 11:59 10/25/23 12:00 Temperature 99 F Pulse Rate 93 H 85 89 Respiratory Rate 20 Blood Pressure 171/78 H Pulse Oximetry 98 96 97 Oxygen Delivery Method Room Air 10/25/23 12:18 10/25/23 12:18 10/25/23 12:30 Temperature Pulse Rate 85 Respiratory Rate Blood Pressure 148/78 H 156/79 H Pulse Oximetry 98 Oxygen Delivery Method 10/25/23 12:30 Temperature Pulse Rate 79 Respiratory Rate Blood Pressure Pulse Oximetry 95 Oxygen Delivery Method Medical Decision Making Lab Data Lab results reviewed: Yes I reviewed the patient's lab results. 10/25/23 12:00 10/25/23 12:00 Labs: Lab Results 10/25/23 10/25/23 Range/Units 11:44 12:00 WBC 5.6 (4.5-11.0) X10^3/uL RBC 4.37 (4.0-5.2) X10^6/uL Hgb 13.5 (12.0-16.0) g/dL Hct 39.1 (36-46) % MCV 89.3 (80-100) fL MCH 30.9 (26-34) PG MCHC 34.6 (30-36) % RDW 13.0 (11.6-14.8) % Plt Count 230 (150-400) X10^3/uL Neut % (Auto) 67.2 (50-75) % Lymph % (Auto) 19.2 L (25-40) % Maverick % (Auto) 10.6 (3-14) % Eos % (Auto) 2.4 (2-4) % Baso % (Auto) 0.6 (0-2) % Neut # (Auto) 3700 (5887-9909) /uL Lymph # (Auto) 1100 (1096-8827) /uL Maverick # (Auto) 600 (0-900) /uL Eos # (Auto) 100 (0-450) /uL Baso # (Auto) 0 (0-100) /uL Sodium 135 L (137-145) mmol/L Potassium 4.1 (3.4-5.1) mmol/L Chloride 103 (98-107) mmol/L Carbon Dioxide 26 (22-32) mmol/L BUN 12 (7-17) mg/dL Creatinine 0.69 (0.52-1.04) mg/dL Estimated GFR > 60 (>60) mL/min BUN/Creatinine Ratio 17.4 (6-22) Glucose 189 H (80-110) mg/dL Calcium 9.2 (8.4-10.2) mg/dL Chlamy pneumoniae PCR Not detected (Not Detect) Adenovirus (PCR) Not detected (Not Detect) B.parapertussis DNA PCR Not detected (Not Detecte) Coronavirus OC43 (PCR) Not detected (Not Detect) Coronavirus HKU1 (PCR) Not detected (Not Detect) Coronavirus 229E (PCR) Not detected (Not Detect) SARS-CoV-2 (PCR) Not detected (Not Detecte) Coronavirus NL63 (PCR) Not detected (Not Detect) Human Metapneumovir PCR Not detected (Not Detect) Influenza Type A (PCR) Not detected (Not Detect) Influenza Type B (PCR) Not detected (Not Detect) M. pneumoniae (PCR) Not detected (Not Detect) Parainfluenza 1 (PCR) Not detected (Not Detect) Parainfluenza 2 (PCR) Not detected (Not Detect) Parainfluenza 3 (PCR) Not detected (Not Detect) Parainfluenza 4 (PCR) Not detected (Not Detect) RSV (PCR) Not detected (Not Detect) Entero/Rhino (PCR) Not detected (Not Detect) Imaging Data Chest x-ray: Radiologist's Impression: PROCEDURE: XR CHEST 1V INDICATIONS: cough for 5 days TECHNIQUE: One view of the chest was acquired. COMPARISON: [facility], , XR CHEST 2V, 01/09/2021, 13:22. FINDINGS: Surgical changes and devices: Remote CABG. Lungs and pleura: Development of a density in the right lung base which may potentially represent pneumonia or perhaps atelectasis. No pleural effusions or pneumothorax. Mediastinum: Mediastinal contours appear normal. Stable heart size, top limits of normal.. Bones and chest wall: No suspicious bony lesions. Overlying soft tissues appear unremarkable. IMPRESSION: Acute right basilar process possibly representing pneumonia versus atelectasis. Comment: PA and lateral chest films may be helpful. MDM Narrative Medical decision making narrative: Patient is not hypoxic. Chest x-ray shows pneumonia. Respiratory panel was negative. No indication for admission to the hospital. Will treat with antibiotics. Patient was given return precautions and follow-up instructions. She expressed understanding and agreement with plan. Discharge Plan Departure Patient Disposition: Home Clinical Impression: Pneumonia Instructions: DI for Pneumonia -- Adult Activity Restrictions/Additional Instructions: Please take the antibiotics as directed. Continue the rest of your medicines as directed. Return to the emergency department for new or worsening symptoms. Prescriptions: New azithromycin 250 mg tablet See Rx Instructions .ROUTE .COMPLEX Qty: 6 0RF Rx Instructions: For 250 mg dose pack: take 500 mg today (day 1), then 250 mg for 4 days (days 2-5) No Action (DME) one touch ultra test strips See Rx Instructions .Route .MEDSUPPLY Qty: 100 3RF Rx Instructions: check blood sugar one time daily metoprolol succinate 25 mg tablet extended release 24 hr 25 mg PO BID metformin 1,000 mg tablet 1,000 mg PO BID Qty: 180 0RF Hold Instructions: Post CABG estradiol [Estrace] 0.01 % (0.1 mg/gram) cream 0.5 g vaginal 2XW Qty: 42.5 3RF Rx Instructions: Apply a small amount to the external genitalia twice a week clobetasol 0.05 % ointment 1 applic topical BEDTIME Qty: 45 1RF Rx Instructions: Apply daily at night for 6-12 wks, then decrease to 2-3 times per week if symptoms improve. duloxetine [Cymbalta] 30 mg capsule,delayed release(DR/EC) 30 mg PO DAILY Qty: 30 0RF famotidine 20 mg tablet 20 mg PO BID aspirin 81 mg tablet,chewable 81 mg PO DAILY isosorbide mononitrate 30 mg tablet extended release 24 hr 30 mg PO DAILY nitroglycerin 0.4 mg tablet, sublingual 0.4 mg sublingual Q5M PRN Rx Instructions: do not exceed 3 doses per episode Referrals: Allison Nolasco DO [Primary Care Provider] - Stand Alone Forms: Patient Portal/API
[2023-10-25 12:17] LABS: Add Manual Diff / Slide Review NO; Basophils Absolute Auto 0 /uL (0-100); Basophils Percent Auto 0.6 % (0-2); Eosinophils Absolute Auto 100 /uL (0-450); Eosinophils Percent Auto 2.4 % (2-4); Hematocrit 39.1 % (36-46); Hemoglobin 13.5 g/dL (12.0-16.0); Lymphocytes Absolute Auto 1100 /uL (1100-4500); Lymphocytes Percent Auto 19.2 % (25-40); Mean Corpuscular HGB Conc 34.6 % (30-36); Mean Corpuscular Hemoglobin 30.9 PG (26-34); Mean Corpuscular Volume 89.3 fL (80-100); Monocytes Absolute Auto 600 /uL (0-900); Monocytes Percent Auto 10.6 % (3-14); Neutrophils Absolute Auto 3700 /uL (1500-7000); Neutrophils Percent Auto 67.2 % (50-75); Platelet Count 230 X10^3/uL (150-400); Red Blood Cell Count 4.37 X10^6/uL (4.0-5.2); White Blood Cell Count 5.6 X10^3/uL (4.5-11.0)
[2023-10-25 12:25] LABS: BUN Creatinine Ratio 17.4 (6-22); Blood Urea Nitrogen 12 mg/dL (7-17); Calcium 9.2 mg/dL (8.4-10.2); Carbon Dioxide 26 mmol/L (22-32); Chloride 103 mmol/L (98-107); Estimated Glomerular Filt Rate > 60 mL/min (>60); Glucose 189 mg/dL (80-110); HEMOLYSIS < 15 (0-50); Potassium 4.1 mmol/L (3.4-5.1); Sodium 135 mmol/L (137-145)
[2023-10-25] MEDS: SODIUM CHLORIDE 0.9% 1,000 ML 1000 ML IV (12:42)
[2023-10-25 13:37] LABS: Adenovirus Not Detected (Not Detect); B. parapertussis Not Detected (Not Detecte); Bordetella pertussis Not Detected (Not Detect); Chlamydophila pneumoniae Not Detected (Not Detect); Coronavirus 229E Not Detected (Not Detect); Coronavirus HKU1 Not Detected (Not Detect); Coronavirus NL 63 Not Detected (Not Detect); Coronavirus OC43 Not Detected (Not Detect); Human Metapneumovirus Not Detected (Not Detect); Human Rhinovirus/Enterovirus Not Detected (Not Detect); Influenza A Not Detected (Not Detect); Influenza B Not Detected (Not Detect); Mycoplasma pneumoniae Not Detected (Not Detect); Parainfluenza Virus 1 Not Detected (Not Detect); Parainfluenza Virus 2 Not Detected (Not Detect); Parainfluenza Virus 3 Not Detected (Not Detect); Parainfluenza Virus 4 Not Detected (Not Detect); Respiratory Syncytial Virus Not Detected (Not Detect); SARS- CoV-2 Not Detected (Not Detecte)
== END 2023-10-25 14:07 | disposition home or self-care (01) ==
PROVIDERS: Emergency Provider Emergency Medicine; PCP Family Medicine
DX: J18.9 Pneumonia, unspecified organism (principal); Z11.52 Encounter for screening for COVID-19
CPT/HCPCS: 36415; 71045; 80048; 81003; 85025; 87633; 99284

== ENCOUNTER → 2024-01-31 09:59 | Outpatient (CLI) | payer MEDICARE, OTHER, SELFPAY ==
[2024-01-31 11:11] LABS: Alanine Aminotransferase 14 IU/L (<35); Aspartate Aminotransferase 22 IU/L (14-36); Cholesterol 258 mg/dL (140-199); Creatine Kinase 39 U/L (30-135); HDL Cholesterol 45 mg/dL (40-60); LDL Cholesterol Calculated 169 mg/dL (<100); Triglycerides 219 mg/dL (35-150)
[2024-01-31 11:25] LABS: LDL Cholesterol Direct 175 mg/dL (<100)
[2024-01-31 11:30] LABS: Vitamin D 25 Hydroxy (D3) 41.3 ng/mL (30.0-100.0)
[2024-01-31 12:01] LABS: Vitamin B12 Reflex MMA if <400 < 159 pg/mL (239-931)
[2024-02-06 21:39] LABS: Methylmalonic Acid,Serum 1137 nmol/L (0-378)
== END ==
PROVIDERS: PCP Family Medicine; Referring Provider Internal Medicine Cardiovascular Disease; Visit Provider Internal Medicine Cardiovascular Disease
DX: R79.89 Other specified abnormal findings of blood chemistry (principal); E78.2 Mixed hyperlipidemia; R53.83 Other fatigue; Z79.899 Other long term (current) drug therapy; M19.90 Unspecified osteoarthritis, unspecified site
CPT/HCPCS: 36415; 80061; 82306; 82550; 82607; 83721; 83921; 84450; 84460

== ENCOUNTER → 2024-05-21 13:38 | Outpatient (CLI) | payer MEDICARE, OTHER, SELFPAY ==
[2024-05-21 14:10] LABS: Add Manual Diff / Slide Review NO; Basophils Absolute Auto 100 /uL (0-100); Basophils Percent Auto 0.8 % (0-2); Eosinophils Absolute Auto 100 /uL (0-450); Eosinophils Percent Auto 1.7 % (2-4); Hematocrit 45.6 % (36-46); Lymphocytes Absolute Auto 2100 /uL (1100-4500); Lymphocytes Percent Auto 23.8 % (25-40); Mean Corpuscular HGB Conc 32.8 % (30-36); Mean Corpuscular Hemoglobin 29.7 PG (26-34); Mean Corpuscular Volume 90.5 fL (80-100); Monocytes Absolute Auto 600 /uL (0-900); Monocytes Percent Auto 6.5 % (3-14); Neutrophils Absolute Auto 6000 /uL (1500-7000); Neutrophils Percent Auto 67.2 % (50-75); Platelet Count 383 X10^3/uL (150-400); Red Blood Cell Count 5.03 X10^6/uL (4.0-5.2); Red Cell Distribution Width 13.4 % (11.6-14.8)
[2024-05-21 15:13] LABS: Vitamin B12 > 1000 pg/mL (239-931)
== END ==
PROVIDERS: PCP Family Medicine; Referring Provider Family Medicine; Visit Provider Family Medicine
DX: Z86.39 Personal history of other endocrine, nutritional and metabolic disease (principal)
CPT/HCPCS: 36415; 82607; 85025

== ENCOUNTER → 2024-08-07 12:01 | Outpatient (CLI) | payer MEDICARE, OTHER, SELFPAY ==
[2024-08-07 13:15] LABS: Alanine Aminotransferase 17 IU/L (<35); Aspartate Aminotransferase 26 IU/L (14-36); Cholesterol 266 mg/dL (140-199); Creatine Kinase 43 U/L (30-135); HDL Cholesterol 49 mg/dL (40-60); LDL Cholesterol Calculated 174 mg/dL (<100); Triglycerides 213 mg/dL (35-150)
[2024-08-07 13:26] LABS: LDL Cholesterol Direct 176 mg/dL (<100)
== END ==
PROVIDERS: PCP Family Medicine; Referring Provider Internal Medicine Cardiovascular Disease; Visit Provider Internal Medicine Cardiovascular Disease
DX: E78.2 Mixed hyperlipidemia (principal)
CPT/HCPCS: 36415; 80061; 82550; 83721; 84450; 84460

== ENCOUNTER → 2024-11-16 14:43 | Outpatient (CLI) | payer MEDICARE, OTHER, SELFPAY ==
[2024-11-16 15:43] LABS: Add Manual Diff / Slide Review NO; Hematocrit 37.9 % (36-46); Hemoglobin 13.4 g/dL (12.0-16.0); Lymphocytes Absolute Auto 2000 /uL (1100-4500); Mean Corpuscular HGB Conc 35.4 % (30-36); Mean Corpuscular Hemoglobin 31.6 PG (26-34); Mean Corpuscular Volume 89.4 fL (80-100); Platelet Count 286 X10^3/uL (150-400)
[2024-11-16 15:52] LABS: Hemoglobin A1C% w Est Avg Glu 7.6 % (4.0-6.0)
[2024-11-16 16:06] LABS: Alanine Aminotransferase 17 IU/L (<35); Albumin 4.5 g/dL (3.5-5.0); Albumin Globulin Ratio 1.6 (1.0-2.8); Alkaline Phosphatase 79 U/L (38-126); Blood Urea Nitrogen 13 mg/dL (7-17); Calcium 9.7 mg/dL (8.4-10.2); Carbon Dioxide 24 mmol/L (22-32); Chloride 100 mmol/L (98-107); Estimated Glomerular Filt Rate > 60 mL/min (>60); Globulin 2.8 g/dL (1.7-4.1); Glucose 204 mg/dL (70-99); HEMOLYSIS < 15 (0-50); Potassium 4.5 mmol/L (3.4-5.1); Sodium 136 mmol/L (137-145); Total Protein 7.3 g/dL (6.3-8.2)
== END ==
PROVIDERS: PCP Family Medicine; Referring Provider Family Medicine; Visit Provider Family Medicine
DX: E11.9 Type 2 diabetes mellitus without complications (principal); I10 Essential (primary) hypertension
CPT/HCPCS: 36415; 80053; 83036; 85025

== ENCOUNTER → 2025-01-28 16:01 | Outpatient (CLI) | payer MEDICARE, OTHER, SELFPAY | PROVIDERS: PCP Family Medicine; Visit Provider Nurse Practitioner Family | DX: R31.9 Hematuria, unspecified (principal) | CPT/HCPCS: 81002; 87086 ==

== ENCOUNTER 2025-02-11 14:45 | Emergency (ER) | payer MEDICARE, OTHER, SELFPAY ==
[2025-02-11 15:10] VITALS: BP 144/68; PULSE 82; RESP 16; TEMP 36.4; O2SAT 94; BMI 22.6
--- NOTE | 2025-02-11 15:20 | DI.RAD.S_ITS ---
PROCEDURE: XR CHEST 2V INDICATIONS: cough; fevers TECHNIQUE: 2 views of the chest were acquired. COMPARISON: [facility], CR, XR CHEST 2V, 01/09/2021, 13:22. [facility], CR, XR CHEST 1V, 10/25/2023, 12:05. FINDINGS: Clothing artifact is noted. Surgical changes and devices: Post CABG changes are seen. Lungs and pleura: Lungs are clear. No pleural effusions or pneumothorax. Mediastinum: Mediastinal contours are normal. Heart size is normal. Bones and chest wall: No suspicious bony abnormalities. Age-appropriate bony degenerative changes are seen. Soft tissues appear unremarkable. IMPRESSION: Clear lungs. Postoperative and degenerative changes are seen. Dictated by: Vinay Kirby M.D. on 02/11/2025 at 15:03 Approved by: Vinay Kirby M.D. on 02/11/2025 at 15:04
[2025-02-11 16:04] LABS: Influenza A - CEPHEID Flu A NEGATIVE (NEGATIVE); Influenza B - CEPHEID Flu B NEGATIVE (NEGATIVE)
[2025-02-11 16:05] LABS: COVID-19 CEPHEID 4-PLEX PCR Negative (Negative)
--- NOTE | 2025-02-11 16:09 | ED_ITS ---
<Statement entered by Serjio Moreno, DO - 02/11/25 18:54> Co-sign statement: I was available for consultation during this patient's emergency department visit. This chart is being signed by myself for administrative purposes only. I do not have direct contact with this patient during this visit. They were seen independently by the [facility]. HPI - URI/Sore Throat General Chief Complaint: Upper Respiratory Symptoms Stated Complaint: Chest cough Time Seen by Provider: 02/11/25 15:20 History of Present Illness HPI Narrative: Ms. Galvan is a very pleasant 74-year-old female with a past medical history of CAD, HTN, HLD, GERD who presents to the emergency department for cough x3 days. Patient reports her has been sick for the last 2 weeks with an upper respiratory illness, he started feeling better however 3 days ago she started feeling sick. She has having a cough that is both productive and dry, subjective fevers, and sinus congestion. She has not experiencing any dysuria, chest pain, shortness of breath, abdominal pain, nausea, vomiting, diarrhea. States that she has a history of pneumonia and was sick for many weeks and would like to rule this out. She does not have asthma or COPD. Related Data Home Medications ?Medication ?Instructions ?Recorded ?Confirmed aspirin 81 mg chewable tablet 81 mg PO DAILY 02/09/20 01/28/25 famotidine 20 mg tablet 20 mg PO BID 03/23/20 metoprolol succinate 25 mg 25 mg PO BID 03/27/2201/28 tablet,extended release 24 hr isosorbide mononitrate 30 mg 30 mg PO DAILY 11/02/22 1 tablet,extended release 24 hr nitroglycerin 0.4 mg sublingual 0.4 mg sublingual Q5M PRN 11/02/22 01/28/25 tablet Previous Rx's ?Medication ?Instructions ?Recorded estradiol 0.01% (0.1 mg/gram) 0.5 g vaginal 2XW #42.5 grams 06/11/23 vaginal cream (Estrace) amlodipine 5 mg tablet 5 mg PO DAILY #90 tabs 11/18 Disabled Parking Permit 1 ea Not Applicable DAILY #1 ea 06/03/24 metformin 1,000 mg tablet 1,000 mg PO BID #180 tabs clobetasol 0.05 % topical ointment 1 applic topical BE DTIME #30 grams 08/28/24 duloxetine 30 mg capsule,delayed 30 mg PO DAILY #90 ca ps 09/10/24 release (Cymbalta) one touch ultra test strips #100 ea 10/05/24 empagliflozin 10 mg tablet 10 mg PO DAILY #60 tabs (Jardiance) cefdinir 300 mg capsule 300 mg PO BID #10 caps 01/28 benzonatate 200 mg capsule 200 mg PO BID-TID PRN cough #20 02/11/25 caps Allergies Allergy/AdvReac Type Severity Reaction Status Date / Time ezetimibe Allergy Severe ITCHING Verified 01/28/25 16:05 CHERYL Inhibitors Allergy Mild hip Verified 01/28/25 16:05 weakness, panic attack Influenza Virus Vaccines Allergy Mild ITCHING Verified 02/11/25 16:31 latex Allergy Mild rash Verified 01/28/25 16:05 Sulfa (Sulfonamide Allergy Mild Swelling Verified 01/28/25 16:05 Antibiotics) codeine Allergy Verified 01/28/25 16:05 empagliflozin (From AdvReac Severe Confusion Verified 01/28/25 16:05 Jardiance) Review of Systems Review of Systems ROS Unobtainable: All systems reviewed & are unremarkable except as noted in HPI and below Patient History Medical History Lichen sclerosus Chronic low back pain Surgical History S/P total knee arthroplasty S/P CABG x 2 alcohol intake frequency: holidays/special occasions only Exam Narrative Exam Narrative: GENERAL: 74 year old patient appears stated age. Well-developed patient, in no acute distress. HEAD: Atraumatic. Normocephalic. EYES: No scleral icterus. No injection or drainage. NECK: Trachea midline. Cervical ROM intact. CARDIOVASCULAR: Regular rate and rhythm. RESPIRATORY: ?Nonlabored respirations. ?Speaking in clear, full sentences. ?Clear to auscultation. Breath sounds equal bilaterally. No wheezes, rales, or rhonchi. ?Patient does have dry cough during exam, sneezing, nasal congestion. EXTREMITIES: No LE edema. NEURO: AOx3. ?Clear speech. ?Moves all 4 extremities appropriately. SKIN: No rash or erythema of visible areas Initial Vital Signs Initial Vital Signs: Vital Signs Temperature 97.5 F L 02/11/25 15:10 Pulse Rate 82 02/11/25 15:10 Respiratory Rate 16 02/11/25 15:10 Blood Pressure 144/68 H 02/11/25 15:10 Pulse Oximetry 94 02/11/25 15:10 Oxygen Delivery Method Room Air 02/11/25 15:10 Course Orders Ordered: ED Orders 02/11/25 15:15 Covid-19 + FLU A/B + RSV - PCR Stat 02/11/25 15:20 XR chest 2V Stat Discontinued Medications Benzonatate (Benzonatate 100 Mg Capsule) 200 mg PO NOW ONE Stop: 02/11/25 16:18 Last Admin: 02/11/25 16:31 Dose: 200 mg Vital Signs Vital signs: Vital Signs - 8 hr 02/11/25 15:10 02/11/25 16:38 Temperature 97.5 F L 99 F Pulse Rate 82 80 Respiratory Rate 16 16 Blood Pressure 144/68 H 130/78 Pulse Oximetry 94 99 Oxygen Delivery Method Room Air Room Air MDM - URI/Sore Throat Medical Records Attestation: I reviewed the patient's medical records. Lab Data Labs: Lab Results 02/11/25 Range/Units 15:15 SARS-CoV-2 (PCR) Negative (Negative) Influenza A (RT-PCR) Flu a negative (NEGATIVE) Influenza B (RT-PCR) Flu b negative (NEGATIVE) RSV (PCR) Negative (Negative) Imaging Data Chest x-ray: Radiologist's Impression: PROCEDURE: XR CHEST 2V INDICATIONS: cough; fevers TECHNIQUE: 2 views of the chest were acquired. COMPARISON: [facility], , XR CHEST 2V, 01/09/2021, 13:22. [facility], , XR CHEST 1V, 10/25/2023, 12:05. FINDINGS: Clothing artifact is noted. Surgical changes and devices: Post CABG changes are seen. Lungs and pleura: Lungs are clear. No pleural effusions or pneumothorax. Mediastinum: Mediastinal contours are normal. Heart size is normal. Bones and chest wall: No suspicious bony abnormalities. Age-appropriate bony degenerative changes are seen. Soft tissues appear unremarkable. IMPRESSION: Clear lungs. Postoperative and degenerative changes are seen. Dictated by: Vinay Kirby M.D. on 02/11/2025 at 15:03 Approved by: Vinay Kirby M.D. on 02/11/2025 at 15:04 [facility] Narrative Medical decision making narrative: 74-year-old female with a past medical history of CAD, HTN, HLD, GERD who presents to the emergency department for cough x3 days. Differential diagnosis includes but isn't limited to viral syndrome, bronchitis, pneumonia, etc. On exam patient is in no acute distress, nontoxic-appearing, all vital signs appropriate. Her lungs are clear to auscultation bilaterally. She does have some nasal congestion, dry cough, sneezing during exam. Sirs screen negative. Chest x-ray obtained revealing clear lungs, viral swab negative. Discussed supportive care including benzonatate, warm fluids with honey, rest, increase hydration, acetaminophen if needed for fevers. Discussed typical course of viral illness and discussed strict ED return precautions. Patient verbalized understanding of all information is agreeable with the plan. She is ambulatory and stable for discharge home. Discharge Plan Departure Patient Disposition: Home Clinical Impression: Viral upper respiratory illness Instructions: DI for Acute Bronchitis Activity Restrictions/Additional Instructions: Dear Radha Mandy, Thank you for coming to the emergency department. Today your chest x-ray was negative for pneumonia and your viral swab was negative for COVID, flu a, flu B or RSV. At this time I suspect you have viral bronchitis and I prescribed you an anti-cough medication that may be helpful. Please drink warm fluids with honey to help soothe the throat, increase hydration with water or electrolyte beverages, rest, use Tylenol if needed for pain and fevers, and follow up with your primary care doctor. Please return to the emergency department if you develop any new or worsening symptoms, have fevers lasting longer than 5 days, chest pain, shortness of breath or any other concerns. Please follow up with your primary care doctor within the next 2-3 days for ER follow-up. (If you do not have a PCP you can call [phone]. to schedule an appointment with an [facility] Primary Care Provider) IF YOU DEVELOP ANY NEW OR WORSENING SYMPTOMS, RETURN TO THE ER! Please read the attached instructions, they highlight more specific treatments and interventions for you at home. Thank you for letting me p Prescriptions: New benzonatate 200 mg capsule 200 mg PO BID-TID PRN (Reason: cough) Qty: 20 0RF Rx Instructions: Keep away from children. No Action cefdinir 300 mg capsule 300 mg PO BID Qty: 10 0RF metoprolol succinate 25 mg tablet extended release 24 hr 25 mg PO BID estradiol [Estrace] 0.01 % (0.1 mg/gram) cream 0.5 g vaginal 2XW Qty: 42.5 3RF Rx Instructions: Apply a small amount to the external genitalia twice a week amlodipine 5 mg tablet 5 mg PO DAILY Qty: 90 0RF Disabled Parking Permit 1 ea Not Applicable DAILY Qty: 1 0RF metformin 1,000 mg tablet 1,000 mg PO BID Qty: 180 0RF duloxetine [Cymbalta] 30 mg capsule,delayed release(DR/EC) 30 mg PO DAILY Qty: 90 2RF (DME) one touch ultra test strips See Rx Instructions .Route .MEDSUPPLY Qty: 100 3RF Rx Instructions: check blood sugar one time daily famotidine 20 mg tablet 20 mg PO BID clobetasol 0.05 % ointment 1 applic topical BEDTIME Qty: 30 6RF aspirin 81 mg tablet,chewable 81 mg PO DAILY isosorbide mononitrate 30 mg tablet extended release 24 hr 30 mg PO DAILY nitroglycerin 0.4 mg tablet, sublingual 0.4 mg sublingual Q5M PRN Rx Instructions: do not exceed 3 doses per episode Jardiance 10 mg tablet 10 mg PO DAILY Qty: 60 3RF Referrals: Allison Nolasco DO [Primary Care Provider, Family Practice] Stand Alone Forms: Patient Portal/API
[2025-02-11] MEDS: BENZONATATE 100 MG CAPSULE 200 MG PO (16:31)
[2025-02-11 16:38] VITALS: BP 130/78; PULSE 80; RESP 16; TEMP 37.2; O2SAT 99
== END 2025-02-11 16:39 | disposition home or self-care (01) ==
PROVIDERS: Emergency Provider Physician Assistant; PCP Family Medicine
DX: J06.9 Acute upper respiratory infection, unspecified (principal)
CPT/HCPCS: 71046; 87637; 99283

== ENCOUNTER → 2025-03-16 11:13 | Outpatient (CLI) | payer MEDICARE, OTHER, SELFPAY ==
[2025-03-16 12:33] LABS: Hemoglobin A1C% w Est Avg Glu 7.6 % (4.0-6.0)
== END ==
PROVIDERS: PCP Family Medicine; Referring Provider Family Medicine; Visit Provider Family Medicine
DX: E11.9 Type 2 diabetes mellitus without complications (principal)
CPT/HCPCS: 36415; 83036

== ENCOUNTER → 2025-03-30 10:37 | Outpatient (CLI) | payer MEDICARE, OTHER, SELFPAY ==
--- NOTE | 2025-03-30 10:38 | DI.MRI.S_ITS ---
PROCEDURE: MR HEAD/BRAIN WO/W CON INDICATIONS: worsening gait and balance; hx of SAH TECHNIQUE: Noncontrast axial T1 spin echo, axial T2 fast spin echo, sagittal and axial FLAIR, coronal T2 fast spin echo, axial gradient echo, axial diffusion and ADC through the brain. After the administration of contrast, axial and coronal and sagittal 3D VIBE or T1 spin echo with fat saturation through the brain. COMPARISON: CT, CT HEAD/BRAIN WO CON, 08/15/2023, 12:25. FINDINGS: Image quality: Excellent. CSF Spaces: Basal cisterns are patent. No extra-axial fluid collections. Ventricles are normal in size and shape. Brain: No midline shift. No intracranial bleeds or masses. No focal superficial siderosis. There is mild, diffuse cerebral volume loss. There are mild periventricular and subcortical white matter chronic microvascular ischemic changes. No abnormal intracranial enhancement. The brainstem appears normal. Diffusion-weighted images demonstrate no acute infarct. No chronic ischemic insults. Normal intravascular flow voids are present. Skull and face: Calvarial marrow is normal in signal. Orbits appear normal. Sinuses: Sinuses and mastoids appear clear. IMPRESSION: No acute intracranial disease process. No acute or chronic infarcts. No abnormal intracranial mass or suspicious postcontrast enhancement. Dictated by: Janeen Tello MD, PhD on 03/30/2025 at 12:33 Approved by: Janeen Tello MD, PhD on 03/30/2025 at 12:37
== END ==
LOC: MRI 10:38
PROVIDERS: PCP Family Medicine; Referring Provider Family Medicine; Visit Provider Family Medicine
DX: R26.89 Other abnormalities of gait and mobility (principal); M21.379 Foot drop, unspecified foot; I25.10 Atherosclerotic heart disease of native coronary artery without angina pectoris; R29.6 Repeated falls; Z86.79 Personal history of other diseases of the circulatory system
CPT/HCPCS: 70553; A9579